=== PATIENT | female | born 1980 ===

== ENCOUNTER 2025-05-21 07:00 | Day surgery (SDC) | payer OTHER ==
[2025-05-13 08:19] VITALS: BP 150/73
[2025-05-13 08:34] LABS: BASO % 0.9 % (0.1-1.2); EOS # 0.53 (0.04-0.54); EOS % 6.1 % (0.7-7.0); LYMPH # 2.52 (1.18-3.74); LYMPH % 28.9 % (19.3-53.1); MEAN PLATELET VOLUME 10.60 fl (9.4-12.4); MONO # 0.47 (0.24-0.82); MONO % 5.4 % (4.7-12.5); NEUT # 5.11 (1.56-6.13); NEUT % 58.6 % (34.0-71.1); RED CELL DISTRIBUTION WIDTH 17.3 % (11.6-14.4)
[2025-05-13 08:47] LABS: URINE APPEARANCE Clear; URINE BILIRRUBIN Negative (NEGATIVE); URINE BLOOD Small; URINE COLOR Dark Yellow; URINE GLUCOSE Negative (NEGATIVE); URINE KETONE Negative (NEGATIVE); URINE LEUKOCYTE Negative; URINE NITRATE Negative; URINE PROTEIN Trace (NEGATIVE); URINE UROBILINOGEN 1.0 E.U./dl
[2025-05-13 08:52] LABS: URINE BACTERIA 983.7 uL (0.0-1933); URINE EPITHELIAL CELLS 48.2 uL (0.0-38.8); URINE RBC 41.5 uL (0.0-20.8); URINE WBC 7.0 uL (0.0-23.2)
[2025-05-13 08:57] LABS: INR 1.05
[2025-05-13 09:10] LABS: URINE CAST 0.28 uL (0.0-1.40)
[2025-05-13 10:09] LABS: BUN CREA RATIO 15.0 (7.0-25.0); CREATININE SERUM 0.6 mg/dL (0.55-1.02); GFR 109.11; GLUCOSE FASTING 81.0 mg/dL (65-100); OSMOLALITY SERUM 277.0 MOSM/KG (275-295)
[~2025-05-21] VITALS: Ht 160 cm; Wt 117.9 kg
[2025-05-21] MEDS ORDERED: CEFAZOLIN SODIUM 1,000 MG VIAL ONE (07:10)
[2025-05-21] MEDS ORDERED: POVIDONE-IODINE 118 ML BOTT TOP ONE (08:50)
[2025-05-21] MEDS ORDERED: CIPROFLOXACIN2.5 ML OTIC (09:57)
== END 2025-05-21 11:55 | disposition home or self-care (01) ==
LOC: CIR.AMB 07:00
PROVIDERS: ATTEND Otolaryngology Otology & Neurotology
DX: H73.822 Atrophic nonflaccid tympanic membrane, left ear (principal); H65.23 Chronic serous otitis media, bilateral